=== PATIENT | female | born 1950 | race Caucasian/White ===

== ENCOUNTER → 2016-10-13 | Outpatient (REF) | payer OTHER ==
[~2016-10-13] MED LIST: AML5T PO; ATOR20TA PO; BPR150TCR PO; LSNP20T PO; METF500T4 PO; MULT-642 PO; NAPR220C11 PO; SRTR100T PO; TRAM-25 PO
[2016-10-13 10:51] LABS: BILIRUBIN,URINE Negative (Negative); COLOR,URINE Yellow; GLUCOSE, URINE (UA) Negative (Negative); LEUKOCYTE ESTERASE, URINE Trace (Negative); PH,URINE 5.5 (5.0 - 8.0); UROBILINOGEN,URINE 0.2 mg/dL (0.2-1.0)
[2016-10-13 11:32] LABS: CLARITY,URINE Slightly Cloudy
[2016-10-13 11:33] LABS: URINE CENTRIFUGED VOLUME <10mL Unspun
== END ==
LOC: LAB 10:17
PROVIDERS: ATTEND Nurse Practitioner Family
DX: E11.9 Type 2 diabetes mellitus without complications (principal); R31.29 Other microscopic hematuria
CPT/HCPCS: 81003; 81015; 83036

== ENCOUNTER → 2016-11-15 | Outpatient (CLI) | payer OTHER ==
[2016-11-15 09:02] LABS: MEAN CORPUSCULAR HEMOGLOBIN 29.2 PG (26.0-34.0); MEAN CORPUSCULAR VOLUME 86 FL (80-100); MEAN PLATELET VOLUME 9.2 FL (6.0-9.5); PLATELET COUNT 218 10^3uL (150-450); WHITE BLOOD COUNT 5.58 10^3uL (4.0-11.0)
[2016-11-15 09:18] LABS: ALBUMIN 4.3 g/dL (3.4-5.0); ANION GAP 18.1 MEQ/L (3-15); CALCULATED IONIZED CALCIUM 4.2 mg/dL (3.8-4.6); MAGNESIUM* 1.7 mg/dL (1.6-2.3); PHOSPHORUS 3.7 mg/dL (2.4-4.9); TOTAL PROTEIN 7.3 g/dL (6.4-8.5)
[2016-11-15 09:23] LABS: BAND NEUTROPHILS % 1 % (0-6); EOSINOPHILS % 2 % (0-4); LYMPHOCYTES # 1.1 #; MONOCYTES # 0.1 #; MONOCYTES % 2 % (3-11); RBC MORPH NORMAL (NORMAL); SEGMENTED NEUTROPHILS % 75 % (51-67); TOTAL CELLS COUNTED 100
== END ==
LOC: LAB 08:31
PROVIDERS: ATTEND Internal Medicine Hematology & Oncology
DX: C50.412 Malignant neoplasm of upper-outer quadrant of left female breast (principal); Z17.0 Estrogen receptor positive status [ER+]
CPT/HCPCS: 36415; 80053; 83615; 83735; 84100; 85007; 85027; 86300

== ENCOUNTER → 2016-11-16 | Outpatient (CLI) | payer OTHER | LOC: RAD 08:56 | PROVIDERS: ATTEND Internal Medicine Hematology & Oncology | DX: C50.412 Malignant neoplasm of upper-outer quadrant of left female breast (principal); Z17.0 Estrogen receptor positive status [ER+]; Z78.0 Asymptomatic menopausal state; M81.0 Age-related osteoporosis without current pathological fracture | CPT/HCPCS: 77080 ==

== ENCOUNTER → 2017-01-19 | Outpatient (REF) | payer OTHER ==
[2017-01-19 09:51] LABS: BILIRUBIN,URINE Negative (Negative); CLARITY,URINE Clear; COLOR,URINE Yellow; GLUCOSE, URINE (UA) Negative (Negative); LEUKOCYTE ESTERASE, URINE Trace (Negative); PH,URINE 5.5 (5.0 - 8.0); UROBILINOGEN,URINE 0.2 mg/dL (0.2-1.0)
[2017-01-19 09:55] LABS: URINE CENTRIFUGED VOLUME <10mL Unspun
[2017-01-19 10:44] LABS: CALCIUM OXALATE CRYSTALS,UR 2+ /HPF; RBC,URINE 0-2 /HPF
== END ==
LOC: LAB 09:04
PROVIDERS: ATTEND Nurse Practitioner Family
DX: E11.9 Type 2 diabetes mellitus without complications (principal); M81.0 Age-related osteoporosis without current pathological fracture; R31.29 Other microscopic hematuria
CPT/HCPCS: 81003; 81015; 82306; 83036

== ENCOUNTER → 2017-02-18 | Outpatient (CLI) | payer OTHER ==
--- NOTE | 2017-02-21 19:50 | Diagnostic Imaging Report ---
INDICATION: History of previous left mastectomy in 2014. COMPARISON: 02/17/2016. The current digital study was evaluated with a Computer Aided Detection (CAD). FINDINGS: No masses have developed. There are scattered vascular calcifications throughout the right breast. No architectural distortion has occurred. IMPRESSION: Stable unilateral mammogram. Routine followup recommended. ACR BI-RADS Category 2: Benign findings. Result letter will be mailed to the patient. Note: At least 10% of breast cancer is not imaged by mammography. Dictated by: Dictated on workstation # [id number]
== END ==
LOC: RAD 09:03
PROVIDERS: ATTEND Nurse Practitioner Family
DX: Z12.31 Encounter for screening mammogram for malignant neoplasm of breast (principal)

== ENCOUNTER → 2017-02-23 | Outpatient (CLI) | payer OTHER ==
--- NOTE | 2017-02-23 13:16 | Diagnostic Imaging Report ---
KNEE, LEFT, 3 VIEWS Comparison: None available. Indication: Chronic knee pain. Technique: Three nonweightbearing views of the left knee. Findings: Degenerative joint space narrowing of the medial and lateral compartments. Tiny marginal osteophytes are seen on the inferior and superior aspects of the patella. Normal variant fabella is present. Small knee joint effusion. No fracture. Impression: 1. Mild osteoarthritis of the knee, greatest in the medial compartment. 2. Small knee joint effusion. Dictated by: Dictated on workstation # [id number]
== END ==
LOC: RAD 12:41
PROVIDERS: ATTEND Nurse Practitioner Family
DX: M25.562 Pain in left knee (principal); M17.12 Unilateral primary osteoarthritis, left knee; M25.462 Effusion, left knee
CPT/HCPCS: 73562